=== PATIENT | female | born 1985 | race Asian ===

== ENCOUNTER 2025-04-16 16:36 | Emergency (ER) | payer SELFPAY ==
[~2025-04-16] VITALS: Ht 160 cm; Wt 73.0 kg
[2025-04-16 16:50] VITALS: PULSE 64; RESP 14; TEMP 97.6
[2025-04-16] MEDS: METOCLOPRAMIDE HCL 10 MG/2ML VIAL IV ONE (18:05)
[2025-04-16] MEDS: LACTATED RINGER'S 1,000 ML INJ ONE (18:05)
[2025-04-16] MEDS: DIPHENHYDRAMINE HCL INJ 50 MG/ML VIAL IV ONE (18:05)
[2025-04-16] MEDS: KETOROLAC TROMETHAMINE 30 MG/ML VIAL IV STA (18:06)
[2025-04-16] MEDS ORDERED: MECLIZINE HCL12.5 MG PO (20:05)
[2025-04-16 20:39] VITALS: BP 110/67; O2SAT 99
== END 2025-04-16 20:05 | disposition home or self-care (01) ==
LOC: FSED 16:40
DX: R42 Dizziness and giddiness (principal); N93.8 Other specified abnormal uterine and vaginal bleeding; R07.89 Other chest pain; R11.0 Nausea; F41.9 Anxiety disorder, unspecified
CPT/HCPCS: 71046; 76856; 80048; 81003; 81025; 84484; 85025; 93005; 96374; 96375; 99284; J1200; J1885; J2765; J7121